=== PATIENT | female | born 1940 | race Caucasian/White ===

== ENCOUNTER 2019-02-18 12:05 | Emergency (ER) | payer MEDICARE ==
[~2019-02-18] VITALS: Ht 160.2 cm; Wt 54.5 kg
--- NOTE | 2019-02-18 12:24 | ED General ---
General Stated Complaint: FALL Source of Information: Patient, Caregiver History of Present Illness Date Seen by Provider: Feb 18, 2019 Time Seen by Provider: 12:15 Initial Comments Fall with injury to left face. Laceration in outline of her glasses. No active bleeding. No other injury or concern. Allergies and Home Medications Patient Home Medication List Home Medication List Reviewed: Yes Review of Systems Review of Systems Constitutional: no symptoms reported; No dizziness, No malaise, No weakness EENTM: see HPI; No ear pain, No blurred vision, No double vision, No eye pain, No vision loss, No mouth pain, No epistaxis, No nose pain, No throat pain, No throat swelling Musculoskeletal: No back pain, No joint pain, No joint swelling, No neck pain Skin: see HPI Past Luggxwa-Sncoxt-Jkjeio Hx Past Med/Social Hx: Reviewed Nursing Past Med/Soc Hx Physical Exam Vital Signs Capillary Refill : Height, Weight, BMI Height: '" Weight: lbs. oz. 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 "scratch") Progress/Results/Core Measures Suspected Sepsis SIRS Temperature: Pulse: Respiratory Rate: Blood Pressure / Mean: Results/Orders Vital Signs/I&O Capillary Refill : Departure Impression Primary Impression: Superficial laceration of face Disposition: HOME, SELF-CARE Condition: Improved Departure-Patient Inst. Referrals: SELF,BJ VALERIO (PCP/Family) Primary Care Physician Patient Instructions: Wound Care CHIO FARMER DO Feb 18, 2019 12:24
[2019-02-18 12:35] VITALS: BP 178/83
--- NOTE | 2019-02-18 12:35 | NUR ---
Pt seen and evaluated by No palpable injury of head/neck/torso/extremities. Denies pain. The left upper cheek area was cleansed with betasept and water then covered in triple antibiotic ointment. The edges of skin tear are well approximated. No active bleeding at area. No c/o offered by patient. Pt is reported to be at normal behavioral level by [facility] staff.
== END 2019-02-18 12:35 | disposition home or self-care (01) ==
LOC: ER FS 12:08
DX: S01.81XA Laceration without foreign body of other part of head, initial encounter (principal); W19.XXXA Unspecified fall, initial encounter

== ENCOUNTER 2019-08-18 18:12 | Emergency (ER) | payer MEDICARE, OTHER ==
[~2019-08-18] VITALS: Ht 160 cm; Wt 61.3 kg
--- OUTSIDE RECORDS SUMMARY | 2019-08-18 18:16 | XMS REPORT ---
Author Author Rach SIMON [facility] Address [address] [place] [address] Care Team Providers Care Nuclear Medical Technologist Name Role Phone BJ SIMON Unavailable PROBLEMS Type Condition ICD9-CM Code [id number] Code Onset Dates Condition S tatus SNOMED Code Problem Chronic kidney disease, stage III (moderate) N18.3 Active 874040277 Problem Type 2 diabetes mellitus with diabetic chronic kidney disease E11.22 Active 110591010 Problem Late onset Alzheimers disease with behavioral disturba nce G30.1 Apr, Active [id number] Problem Type 2 diabetes mellitus wit h hyperglycemia, with long-term current use of insulin E11.65 22 May, 2017 Active [id number] ALLERGIES No Information ENCOUNTERS Encounter Location Date Diagnosis [address] [id number] [address] Jul, [address] [id number] [address] 02 Jul, 2019 UTI symptoms R39.[address] [id number] [address] Jun, [facility] [address] [place] [address] 14 May, 2019 Late onset Alzheimers disease with behavioral disturbance G30.[address] [id number], [place] [address] 12 May, [address] [id number], [place] [address] Apr, [address] [id number] [address] Apr, [address] [id number] [place] [address] Apr, [facility] [address] [address] Mar, Late onset Alzheimers disease with behavioral disturbance G30.1 ; Chronic kidney disease, stage III (moderate) N18.3 and Elevated blood pressure reading R03.0 [facility] [address] [id number] [place] [address] Feb, [facility] [address] [id number], [place] [address] Feb, [facility] [address] [id number], [place] [address] Jan, Fall W19.XXXA [facility] [address] Jan, Late onset Alzheimers disease with behavioral disturbance G30.1 [facility] [address] [id number], [place] [address] Dec, [facility] [address] [id number], [place] [address] Dec, [facility] [address] [address] Nov, Late onset Alzheimers disease with behavioral disturbance G30.1 ; Type 2 diabetes mellitus with hyperglycemia, with long-term current use of insulin E11.65 ; Type 2 diabetes mellitus with diabetic chronic kidney disease E11.22 and Chronic kidney disease, stage III (moderate) N18.3 [facility] [address] [id number] [place] [address] Nov, [facility] [address] [id number] [place] [address] Nov, Acute lower UTI N39.0 [facility] [place] [address] [id number] [place] [address] Nov, Type 2 diabetes mellitus wit h hyperglycemia, with long- term current use of insulin E11.65 [facility] [address] [id number] [place] [address] Oct, Abnormal metabolic state in diabetes mellitus E11.69 and Alzheimer's disease G30.9 [facility] [place] [address] [id number] [place] [address] Oct, [facility] [place] [address] [id number] [place] [address] Oct, [facility] [place] [address] [id number] [place] [address] Sep, Type 2 diabetes mellitus wit h hyperglycemia, with long- term current use of insulin E11.65 and Alzheimer disease G30.9 [facility] [place] [address] [id number] [place] [address] Sep, [facility] [place] [address] [id number] [place] [address] Sep, [facility] [place] [address] [id number] [place] [address] Sep, [facility] [place] [address] [id number] [place] [address] August, [facility] [place] [address] [id number] [place] [address] August, [facility] [place] [address] [id number] [place] [address] August, [facility] [place] [address] [id number] [place] [address] August, [facility] [place] [address] [id number] [place] [address] Jul, [facility] [place] [address] [id number] [place] [address] Jun, Type 2 diabetes mellitus wit h hyperglycemia, with long- term current use of insulin E11.65 [facility] [place] [address] [id number] [place] [address] Jun, [facility] [address] [id number] [place] [address] Jun, Alzheimer disease G30.9 and Abnormal metabolic state in diabetes mellitus E11.[address] [id number] [place] [address] 15 May, [address] [id number] [place] [address] May, [facility] [address] [facility] [id number] [address] [place] [address] Mar, [facility] [address] [facility] [id number] [address] [place] [address] Mar, [facility] [address] [facility] [id number] [address] [place] [address] Apr, [facility] [address] [facility] [id number] [address] [place] [address] Jun, IMMUNIZATIONS No Known Immunizations SOCIAL HISTORY Never Assessed REASON FOR VISIT Chronic PLAN OF CARE Activity Details Follow Up 2 Months Reason: VITAL SIGNS MEDICATIONS Unknown Medications RESULTS No Results PROCEDURES Procedure Date Ordered Result Body Site Stable Visit (10 minutes) July 22, 2018 INSTRUCTIONS MEDICATIONS ADMINISTERED No Known Medications MEDICAL (GENERAL) HISTORY Type Description Date Medical History Type 2 diabetes mellitus wit h hyperglycemia, with long-term current use of insulin Medical History Late onset Alzheimers disease with behav ioral disturbance
--- OUTSIDE RECORDS SUMMARY | 2019-08-18 18:16 | XMS REPORT | Continuity of Care Document ---
Author Organization Unknown Address Unknown Phone Unavailable Allergies Active Description Code Type Severity Reaction Onset Reported/Identified Relationship to Patient Clinical Status Yes azithromycin [id number] Drug Allergy Unknown N/A 02/18/2019 Yes metformin [id number] Drug Allergy Unknown N/A 02/18/2019 Yes NSAIDS (Non-Steroidal Anti-Inflamma [id number] Drug Allergy Unknown N/A 02/18/2019 Medications There is no data. Problems Date Dx Coded Attending Type Code Diagnosis Diagnosed By 02/18/2019 CHIO FARMER DO Ot S01.81XA LACERATION W/O FOREIGN BODY OF OTH PART 02/18/2019 CHIO FARMER DO Ot W19.XXXA UNSPECIFIED FALL, INITIAL ENCOUNTER Procedures There is no data. Results Test Result Range CMP - 07/05/18 11:28 GLUCOSE 123 mg/dL 65-99 UREA NITROGEN (BUN) 33 mg/dL 7-25 CREATININE 1.43 mg/dL 0.60-0.93 eGFR NON-AFR. BOLIVIAN 35 mL/min/1.73m2 > OR = 60 eGFR 41 mL/min/1.73m2 > OR = 60 BUN/CREATININE RATIO 23 (calc) 6-22 SODIUM 140 mmol/L 135-146 POTASSIUM 4.6 mmol/L 3.5-5.3 CHLORIDE 105 mmol/L 98-110 CARBON DIOXIDE 27 mmol/L 20-32 CALCIUM 9.5 mg/dL 8.6-10.4 PROTEIN, TOTAL 6.6 g/dL 6.1-8.1 ALBUMIN 4.0 g/dL 3.6-5.1 GLOBULIN 2.6 g/dL (calc) 1.9-3.7 ALBUMIN/GLOBULIN RATIO 1.5 (calc) 1.0-2. 5 BILIRUBIN, TOTAL 0.3 mg/dL 0.2-1.2 ALKALINE PHOSPHATASE 65 U/L 33-130 AST 16 U/L 10-35 ALT 11 U/L 6-29 CBC w/MANUAL DIFF - 07/05/18 11:28 WHITE BLOOD CELL COUNT 5.4 Thousand/uL 3 .8-10.8 RED BLOOD CELL COUNT 4.09 Million/uL 3.8 0-5.10 HEMOGLOBIN 12.3 g/dL 11.7-15.5 HEMATOCRIT 38.3 % 35.0-45.0 MCV 93.6 fL 80.0-100.0 MCH 30.1 pg 27.0-33.0 MCHC 32.1 g/dL 32.0-36.0 RDW 12.0 % 11.0-15.0 PLATELET COUNT 199 Thousand/uL 140-400 MPV 11.0 fL 7.5-12.5 ABSOLUTE NEUTROPHILS 2322 cells/uL 1500- 7800 ABSOLUTE MONOCYTES 1026 cells/uL 200-950 ABSOLUTE EOSINOPHILS 324 cells/uL 15-500 ABSOLUTE BASOPHILS 108 cells/uL 0-200 NEUTROPHILS 43 % NRG LYMPHOCYTES 30 % NRG MONOCYTES 19 % NRG EOSINOPHILS 6 % NRG BASOPHILS 2 % NRG ABSOLUTE LYMPHOCYTES 1620 cells/uL 850-3 900 PLATELET ESTIMATION ADEQUATE ADEQUATE CBC MORPHOLOGY NORMAL A1C - 07/05/18 11:28 HEMOGLOBIN A1c 7.5 % of total Hgb <5.7 CMP - 11/15/18 08:09 GLUCOSE 94 mg/dL 65-99 UREA NITROGEN (BUN) 40 mg/dL 7-25 CREATININE 1.51 mg/dL 0.60-0.93 eGFR NON-AFR. BOLIVIAN 33 mL/min/1.73m2 > OR = 60 eGFR 39 mL/min/1.73m2 > OR = 60 BUN/CREATININE RATIO 26 (calc) 6-22 SODIUM 145 mmol/L 135-146 POTASSIUM 4.9 mmol/L 3.5-5.3 CHLORIDE 108 mmol/L 98-110 CARBON DIOXIDE 29 mmol/L 20-32 CALCIUM 9.8 mg/dL 8.6-10.4 PROTEIN, TOTAL 7.2 g/dL 6.1-8.1 ALBUMIN 4.3 g/dL 3.6-5.1 GLOBULIN 2.9 g/dL (calc) 1.9-3.7 ALBUMIN/GLOBULIN RATIO 1.5 (calc) 1.0-2. 5 BILIRUBIN, TOTAL 0.4 mg/dL 0.2-1.2 ALKALINE PHOSPHATASE 82 U/L 33-130 AST 16 U/L 10-35 ALT 10 U/L 6-29 A1C - 11/15/18 08:09 HEMOGLOBIN A1c 8.2 % of total Hgb <5.7 CULTURE, URINE - 12/01/18 13:41 CULTURE, URINE, ROUTINE SEE NOTE NRG Encounters ACCT No. Visit Date/Time Discharge Status Pt. Type Provider Facility Loc./Unit Complaint [id number] 06/09/2019 14:00:00 06/09/2019 23:59: 59 CLS Outpatient BJ SIMON [id number] 12/01/2018 13:30:00 Document Registration [id number] 11/15/2018 17:45:00 Document Registration [id number] 07/05/2018 17:45:00 Document Registration [id number] 02/18/2019 12:08:00 12:35:00 DIS Emergency CHIO FARMER DO [facility] ER FS FALL [id number] 08/18/2019 18:13:[address] Emergency CHIO FARMER DO [facility] ER FS
[2019-08-18 18:20] VITALS: BP 199/73
--- NOTE | 2019-08-18 18:24 | Diagnostic Imaging Report ---
INDICATION: Altered mental status. Right-sided weakness. TECHNIQUE: Routine non contrast-enhanced axial images were obtained from the skull base to the vertex. Auto Exposure Controls were utilized during the CT exam to meet ALARA standards for radiation dose reduction COMPARISON: None. FINDINGS: The ventricles and cortical sulci are diffusely prominent, compatible with age-related volume loss. There are confluent areas of abnormal, low attenuation in the periventricular white matter. This is consistent with small vessel ischemic changes; age-indeterminate. There is no prior study available for comparison. There is no midline shift or mass-effect. No acute intra-axial hemorrhage is seen. There are no abnormal areas of increased or decreased density to suggest acute hemorrhage or edema. No extra-axial masses or collections are present. The bony calvarium is intact. The visualized paranasal sinuses are unremarkable. The mastoid air cells are clear. IMPRESSION: 1. No acute intracranial abnormality. No CT evidence of mass, acute infarct or intracranial hemorrhage. 2. Small vessel ischemic changes in the periventricular and subcortical white matter; likely chronic. Dictated by: Dictated on workstation # [id number]
--- NOTE | 2019-08-18 18:31 | ED General ---
General Chief Complaint: Altered Mental Status Exam Limitations: Other (Dementia- unable to answer specific questions, but is without complaint) History of Present Illness Date Seen by Provider: Aug 18, 2019 Time Seen by Provider: 18:20 Initial Comments Presents via EMS from the [place] where she became unresponsive and noted to have BS in 30's, given glucose en route to ER. Required oxygen (not normally on O2). More alert on arrival. Pt w significant dementia at baseline. Allergies and Home Medications Allergies Coded Allergies: NSAIDS (Non-Steroidal Anti-Inflamma (Unverified Allergy, Unknown, 02/18/19) azithromycin (Unverified Allergy, Unknown, 02/18/19) metformin (Unverified Allergy, Unknown, 02/18/19) Patient Home Medication List Home Medication List Reviewed: Yes Review of Systems Review of Systems Constitutional: see HPI Past Tmrzjwm-Ztjglq-Mtkxjm Hx Past Med/Social Hx: Reviewed Nursing Past Med/Soc Hx Patient Social History Recent Hopitalizations: No Immunizations Up To Date Tetanus Booster (TDap): Unknown Seasonal Allergies Seasonal Allergies: No Past Medical History Surgeries: No (Poor historian r/t dementia) Respiratory: No Cardiac: Yes High Cholesterol Neurological: Yes (Advanced Alzheimer's, Diabetic neuropathy) Dementia, Neuropathy Genitourinary: No Gastrointestinal: No Musculoskeletal: No Endocrine: Yes Diabetes, Insulin dep HEENT: No Cancer: No Psychosocial: Yes (Delusional disorder) Anxiety, Depression Integumentary: No Blood Disorders: No Physical Exam Vital Signs Vital Signs - First Documented 08/18/19 18:15 Temp 36.3 Pulse 98 Resp 19 B/P (MAP) 199/73 (115) Pulse Ox 84 O2 Delivery Nasal Cannula O2 Flow Rate 4.00 Capillary Refill : Height, Weight, BMI Height: '" Weight: lbs. oz. 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 Norm as Tested; No Aphasia, No Facial Droop, No Motor Weakness, No Sensory Deficit Skin: Normal Color, Warm/Dry Focused Exam Lactate Level 08/18/19 18:42: Lactic Acid Level 2.29*H Lactic Acid Level Laboratory Tests Test 08/18/19 18:42 Lactic Acid Level 2.29 MMOL/L (0.50-2.00) *H Progress/Results/Core Measures Suspected Sepsis Recent Fever Within 48 Hours: No Infection Criteria Present: None New/Unexplained Altered Menta: Yes SIRS Temperature: Pulse: Respiratory Rate: Laboratory Tests 08/18/19 18:25: White Blood Count 9.3 Blood Pressure / Mean: 08/18/19 18:42: Lactic Acid Level 2.29*H Laboratory Tests 08/18/19 18:25: Creatinine 1.35H, Platelet Count 58L, Total Bilirubin 0.3 Results/Orders Lab Results Laboratory Tests Test 08/18/19 18:25 08/18/19 18:42 08/18/19 19:28 Range/Units White Blood Count 9.3 4.3-11.0 10^3/uL Red Blood Count 3.90 L 4.35-5.85 10^6/uL Hemoglobin 11.6 11.5-16.0 G/DL Hematocrit 37 35-52 % Mean Corpuscular Volume 94 80-99 FL Mean Corpuscular Hemoglobin 30 25-34 PG Mean Corpuscular Hemoglobin Concent 32 32-36 G/DL Red Cell Distribution Width 12.4 10.0-14.5 % Platelet Count 58 L 130-400 10^3/uL Mean Platelet Volume 11.4 H 7.4-10.4 FL Neutrophils (%) (Auto) 77 H 42-75 % Lymphocytes (%) (Auto) 13 12-44 % Monocytes (%) (Auto) 8 0-12 % Eosinophils (%) (Auto) 2 0-10 % Basophils (%) (Auto) 1 0-10 % Neutrophils # (Auto) 7.1 1.8-7.8 X 10^3 Lymphocytes # (Auto) 1.2 1.0-4.0 X 10^3 Monocytes # (Auto) 0.4 0.0-1.0 X 10^3 Eosinophils # (Auto) 0.1 0.0-0.3 10^3/uL Basophils # (Auto) 0.1 0.0-0.1 10^3/uL Sodium Level 137 135-145 MMOL/L Potassium Level 4.6 3.6-5.0 MMOL/L Chloride Level 98 98-107 MMOL/L Carbon Dioxide Level 24 21-32 MMOL/L Anion Gap 15 H 5-14 MMOL/L Blood Urea Nitrogen 32 H 7-18 MG/DL Creatinine 1.35 H 0.60-1.30 MG/DL Estimat Glomerular Filtration Rate 38 BUN/Creatinine Ratio 24 Glucose Level 220 H 70-105 MG/DL Calcium Level 8.9 8.5-10.1 MG/DL Corrected Calcium 8.7 8.5-10.1 MG/DL Total Bilirubin 0.3 0.1-1.0 MG/DL Aspartate Amino Transf (AST/SGOT) 23 5-34 U/L Alanine Aminotransferase (ALT/SGPT) 15 0-55 U/L Alkaline Phosphatase 95 40-136 U/L Total Protein 6.9 6.4-8.2 GM/DL Albumin 4.2 3.2-4.5 GM/DL Lactic Acid Level 2.29 *H 0.50-2.00 MMOL/L Glucometer 250 H 70-110 MG/DL My Orders Orders - ROVENSTINE,CHIO L DO Ct Head Wo-R/O Stroke (08/18/19 18:15) Cbc With Automated Diff (08/18/19 18:14) Comprehensive Metabolic Panel (08/18/19 18:14) Urinalysis (08/18/19 18:14) Chest Pa/Lat (2 View) (08/18/19 18:26) Lactic Acid Analyzer (08/18/19 18:26) Vital Signs/I&O 08/18/19 08/18/19 08/18/19 18:15 18:20 19:20 Temp 36.3 36.3 Pulse 98 98 94 Resp 19 19 18 B/P (MAP) 199/73 (115) 199/73 (115) 177/82 Pulse Ox 84 93 92 O2 Delivery Nasal Cannula Room Air Room Air O2 Flow Rate 4.00 4.00 100.00 Capillary Refill : Progress Note : Progress Note patient well appearing and in no distress. NO neurologic deficit. Return to baseline dementia. Initially Hypoxic, but quickly resolved and Sats >92% on RA at Discharge back to [place]. Normal CXR and CT. Episode confirmed to be due to Hypoglycemia. Diagnostic Imaging Diagonstic Imaging: Xray, CT Plain Films/CT/US/NM/MRI: chest, head Comments IMPRESSION: 1. No acute intracranial abnormality. No CT evidence of mass, acute infarct or intracranial hemorrhage. 2. Small vessel ischemic changes in the periventricular and subcortical white matter; likely chronic. Dictated on workstation # [id number] Dict: 08/18/19 182 Trans: 08/18/19 182 [facility] [id number] Interpreted by: TINO SINGH MD FINDINGS: The cardiac silhouette is within normal limits in size. No significant pulmonary vascular congestion. The lungs are hyperinflated with flattening of the diaphragm and prominence of the anterior clear space. The lungs are clear with focal pulmonary opacity. No pleural effusion. No pneumothorax. No acute osseous abnormality. IMPRESSION: Background chronic obstructive pulmonary disease without superimposed acute cardiopulmonary abnormality. Dictated on workstation # [id number] Dict: 08/18/19 1842 Trans: 08/18/19 185 [facility] [phone] Interpreted by: LISA DELEON MD Departure Impression Primary Impression: Unresponsive episode Additional Impression: Hypoglycemia Disposition: 01 HOME, SELF-CARE (intermediate) Condition: Improved Departure-Patient Inst. Decision time for Depature: 19:14 Referrals: BJ SIMON MD (PCP/Family) Primary Care Physician Patient Instructions: Low Blood Sugar, Adult (DC) CHIO FARMER DO Aug 18, 2019 18:31
[2019-08-18 18:35] LABS: BASOPHILS # (AUTO) 0.1 10^3/uL (0.0-0.1); BASOPHILS % (AUTO) 1 % (0-10); EOSINOPHILS # (AUTO) 0.1 10^3/uL (0.0-0.3); EOSINOPHILS % (AUTO) 2 % (0-10); HEMATOCRIT 37 % (35-52); HEMOGLOBIN 11.6 G/DL (11.5-16.0); LYMPHOCYTES # (AUTO) 1.2 X 10^3 (1.0-4.0); LYMPHOCYTES % (AUTO) 13 % (12-44); MEAN CORPUSCULAR HEMOGLOBIN 30 PG (25-34); MEAN CORPUSCULAR HGB CONC 32 G/DL (32-36); MEAN CORPUSCULAR VOLUME 94 FL (80-99); MEAN PLATELET VOLUME 11.4 FL (7.4-10.4); MONOCYTES # (AUTO) 0.4 X 10^3 (0.0-1.0); MONOCYTES % (AUTO) 8 % (0-12); NEUTROPHILS # (AUTO) 7.1 X 10^3 (1.8-7.8); NEUTROPHILS % (AUTO) 77 % (42-75); PLATELET COUNT 58 10^3/uL (130-400); RED CELL DISTRIBUTION WIDTH 12.4 % (10.0-14.5); WHITE BLOOD COUNT 9.3 10^3/uL (4.3-11.0)
--- NOTE | 2019-08-18 18:53 | Diagnostic Imaging Report ---
INDICATION: Altered mental status, wheezing. COMPARISON: None available. TECHNIQUE: Frontal and lateral radiographs of the chest dated August 18, 2019. FINDINGS: The cardiac silhouette is within normal limits in size. No significant pulmonary vascular congestion. The lungs are hyperinflated with flattening of the diaphragm and prominence of the anterior clear space. The lungs are clear with focal pulmonary opacity. No pleural effusion. No pneumothorax. No acute osseous abnormality. IMPRESSION: Background chronic obstructive pulmonary disease without superimposed acute cardiopulmonary abnormality. Dictated by: Dictated on workstation # [id number]
[2019-08-18 18:56] LABS: ALBUMIN 4.2 GM/DL (3.2-4.5); BILIRUBIN,TOTAL 0.3 MG/DL (0.1-1.0); CALCIUM 8.9 MG/DL (8.5-10.1); CREATININE SERUM 1.35 MG/DL (0.60-1.30); POTASSIUM 4.6 MMOL/L (3.6-5.0); TOTAL PROTEIN 6.9 GM/DL (6.4-8.2)
[2019-08-18 19:20] VITALS: BP 177/82
== END 2019-08-18 19:47 | disposition home or self-care (01) ==
LOC: EDUNIT# 18:12 → ER FS 18:13
DX: E11.641 Type 2 diabetes mellitus with hypoglycemia with coma (principal); E11.40 Type 2 diabetes mellitus with diabetic neuropathy, unspecified; Z88.6 Allergy status to analgesic agent; Z88.1 Allergy status to other antibiotic agents; Z88.8 Allergy status to other drugs, medicaments and biological substances
CPT/HCPCS: 36415; 70450; 71046; 80053; 82962; 83605; 85025

== ENCOUNTER 2019-08-31 15:26 | Emergency (ER) | payer MEDICARE, MEDICAID ==
[2019-08-31] VITALS (7 sets, daily range): BP systolic 147–175; BP diastolic 59–72
[~2019-08-31] VITALS: Ht 167.7 cm; Wt 68.2 kg
--- NOTE | 2019-08-31 15:37 | ED General ---
General Stated Complaint: SINKABLE EPISODE History of Present Illness Date Seen by Provider: August 31, 2019 Time Seen by Provider: 15:36 Initial Comments 79-year-old female presents with a brief syncopal episode. Patient was at [facility] where she [facility]. EMS reports that they were called because she had a brief less than 2 minute episode when she had a syncopal event. Upon arrival EMS reports she was alert orientated in her baseline. Patient is at her baseline upon arrival. Upon arrival she has no complaints. C guillory review shows that she had a similar episode 2 weeks ago. Patient is alert and orientated to person place time and wishes no other event happened. Patient has no injuries. No other history of present illness available Allergies and Home Medications Allergies Coded Allergies: NSAIDS (Non-Steroidal Anti-Inflamma (Unverified Allergy, Unknown, 02/18/19) azithromycin (Unverified Allergy, Unknown, 02/18/19) metformin (Unverified Allergy, Unknown, 02/18/19) Patient Home Medication List Home Medication List Reviewed: Yes Review of Systems Review of Systems Constitutional: No chills, No fever EENTM: no symptoms reported Respiratory: no symptoms reported Cardiovascular: no symptoms reported Gastrointestinal: no symptoms reported Genitourinary: no symptoms reported Musculoskeletal: no symptoms reported Psychiatric/Neurological: See HPI Hematologic/Lymphatic: No Symptoms Reported Past Jsvqoye-Sktxso-Pbqtcj Hx Past Med/Social Hx: Reviewed Nursing Past Med/Soc Hx Patient Social History 2nd Hand Smoke Exposure: No Recent Hopitalizations: No Immunizations Up To Date Tetanus Booster (TDap): Unknown Seasonal Allergies Seasonal Allergies: No Past Medical History Surgeries: No (Poor historian r/t dementia) Respiratory: No Cardiac: Yes High Cholesterol Neurological: Yes (Advanced Alzheimer's, Diabetic neuropathy) Dementia, Neuropathy Genitourinary: No Gastrointestinal: Yes Chronic Constipation Musculoskeletal: No Endocrine: Yes Diabetes, Insulin dep HEENT: No Cancer: No Psychosocial: Yes (Delusional disorder) Anxiety, Depression Integumentary: No Blood Disorders: No Physical Exam Vital Signs Vital Signs - First Documented 08/31/19 15:56 Temp 36.6 Pulse 76 Resp 13 B/P (MAP) 188/68 (108) Pulse Ox 96 O2 Delivery Room Air Capillary Refill : Height, Weight, BMI Height: '" Weight: lbs. oz. kg; 23.00 BMI Method: General Appearance: No Apparent Distress, WD/WN Eyes: Bilateral Eye Normal Inspection, Bilateral Eye PERRL HEENT: PERRL/EOMI, Normal ENT Inspection, Pharynx Normal Neck: Non Tender, Supple Respiratory: Chest Non Tender, Lungs Clear, Normal Breath Sounds Cardiovascular: Regular Rate, Rhythm, No Edema Gastrointestinal: Non Tender, Soft Extremity: Normal Capillary Refill, Normal Inspection Neurologic/Psychiatric: Alert, Oriented x3, No Motor/Sensory Deficits, Normal Mood/Affect, traffic manager II-XII Norm as Tested Skin: Normal Color, Warm/Dry Progress/Results/Core Measures Suspected Sepsis SIRS Temperature: Pulse: Respiratory Rate: Laboratory Tests 08/31/19 15:40: White Blood Count 9.5 Blood Pressure / Mean: Laboratory Tests 08/31/19 15:40: Creatinine 1.60H, Platelet Count 301, Total Bilirubin < 0.2 Results/Orders Lab Results Laboratory Tests Test 08/31/19 15:40 Range/Units White Blood Count 9.5 4.3-11.0 10^3/uL Red Blood Count 3.79 L 4.35-5.85 10^6/uL Hemoglobin 11.5 11.5-16.0 G/DL Hematocrit 36 35-52 % Mean Corpuscular Volume 95 80-99 FL Mean Corpuscular Hemoglobin 30 25-34 PG Mean Corpuscular Hemoglobin Concent 32 32-36 G/DL Red Cell Distribution Width 12.7 10.0-14.5 % Platelet Count 301 130-400 10^3/uL Mean Platelet Volume 10.4 7.4-10.4 FL Neutrophils (%) (Auto) 53 42-75 % Lymphocytes (%) (Auto) 30 12-44 % Monocytes (%) (Auto) 13 H 0-12 % Eosinophils (%) (Auto) 3 0-10 % Basophils (%) (Auto) 1 0-10 % Neutrophils # (Auto) 5.0 1.8-7.8 X 10^3 Lymphocytes # (Auto) 2.9 1.0-4.0 X 10^3 Monocytes # (Auto) 1.2 H 0.0-1.0 X 10^3 Eosinophils # (Auto) 0.3 0.0-0.3 10^3/uL Basophils # (Auto) 0.1 0.0-0.1 10^3/uL Sodium Level 142 135-145 MMOL/L Potassium Level 5.0 3.6-5.0 MMOL/L Chloride Level 102 98-107 MMOL/L Carbon Dioxide Level 26 21-32 MMOL/L Anion Gap 14 5-14 MMOL/L Blood Urea Nitrogen 46 H 7-18 MG/DL Creatinine 1.60 H 0.60-1.30 MG/DL Estimat Glomerular Filtration Rate 31 BUN/Creatinine Ratio 29 Glucose Level 185 H 70-105 MG/DL Calcium Level 9.4 8.5-10.1 MG/DL Corrected Calcium 9.3 8.5-10.1 MG/DL Total Bilirubin < 0.2 0.1-1.0 MG/DL Aspartate Amino Transf (AST/SGOT) 19 5-34 U/L Alanine Aminotransferase (ALT/SGPT) 12 0-55 U/L Alkaline Phosphatase 94 40-136 U/L Troponin I < 0.30 <0.30 NG/ML Total Protein 7.3 6.4-8.2 GM/DL Albumin 4.1 3.2-4.5 GM/DL My Orders Orders - ALVARADO,FIDEL L DO Ct Head Wo-R/O Stroke (08/31/19 15:47) Cbc With Automated Diff (08/31/19 15:47) Comprehensive Metabolic Panel (08/31/19 15:47) Ua Culture If Indicated (08/31/19 15:47) Accucheck Stat ONCE (08/31/19 15:47) Troponin I Fs (08/31/19 15:47) Ekg Tracing (08/31/19 15:47) Chest 1 View Ap/Pa Only (08/31/19 15:48) Ed Iv/Invasive Line Start (08/31/19 16:31) Ns Iv 500 Ml (Sodium Chloride 0.9%) (08/31/19 16:31) Medications Given in ED Current Medications Medications Dose Ordered Sig/Yadira Route Start Time Stop Time Status Last Admin Dose Admin Sodium Chloride 500 ml @ 0 mls/hr Q0M ONCE IV 08/31/19 16:31 08/31/19 16:32 DC 08/31/19 17:03 999 MLS/HR Vital Signs/I&O 08/31/19 15:56 Temp 36.6 Pulse 76 Resp 13 B/P (MAP) 188/68 (108) Pulse Ox 96 O2 Delivery Room Air Capillary Refill : Progress Note : Time: 17:23 Progress Note Patient remained alert orientated with no acute findings on her stay. We will have the [facility] obtain a urine and have it evaluated by her primary care provider. Patient had some mild dehydration likely chronic. She will be discharged back to the [facility] in stable condition. Diagnostic Imaging Comments [facility] [place] NAME: ZECHARIAH CHAMBERLAIN [facility] REC#: [id number] PT STATUS: REG ER : 1940 PHYSICIAN: FIDEL ALVARADO DO ADMIT DATE: 08/31/19/ER FS Draft Date of Exam:08/31/19 CT HEAD WO-R/O STROKE CLINICAL INDICATION: Patient with dizziness and syncope. EXAM: Axial CT scan of the brain performed without IV contrast. COMPARISON: Head CT without contrast dated 08/18/2019. FINDINGS: Skull streak artifact is seen obscuring the brainstem, posterior fossa, and portions of the brain near the skull base. There is no interval CT evidence of acute cerebral infarct, intracranial hemorrhage, or gross mass effect. Stable diffuse brain parenchymal volume loss with the frontal lobes and temporal lobes affected the most. There are patchy areas of low-attenuation white matter changes seen throughout both cerebral hemispheres, likely representing chronic small vessel ischemic disease. Stable enlargement of the lateral third ventricles, likely related to brain parenchymal volume loss. Basal cisterns are unremarkable. Extracranial soft tissues, skull, and orbits are unremarkable. Paranasal sinuses and mastoid air cells are clear. IMPRESSION: Stable CT scan of the brain with no interval acute intracranial process. [facility] [place] NAME: ZECHARIAH CHAMBERLAIN [facility] REC#: [id number] PT STATUS: REG ER : 1940 PHYSICIAN: FIDEL ALVARADO DO ADMIT DATE: 08/31/19/ER FS Draft Date of Exam:08/31/19 CHEST 1 VIEW AP/PA ONLY INDICATION: Syncope. Dizziness. COMPARISON: 08/18/2019. FINDINGS: Single frontal view of the chest demonstrates normal heart size and pulmonary vascularity. The lungs are well aerated and clear. No large pleural effusion or pneumothorax is seen. The visualized osseous structures show no acute abnormalities. IMPRESSION: 1. No acute cardiopulmonary process. Departure Impression Primary Impression: Syncope Qualified Codes: R55 - Syncope and collapse Additional Impression: Mild dehydration Disposition: 01 HOME, SELF-CARE Condition: Stable Departure-Patient Inst. Referrals: BJ SIMON MD (PCP/Family) Primary Care Physician Patient Instructions: Syncope (Fainting) (DC), Dehydration, Adult (DC) Add. Discharge Instructions: Please have patient urine checked by her primary care provider if there is a concern for urinary tract infection. Follow-up with primary care provider in 2-3 days for continuation of care and recheck in today symptoms Emergency department focuses on treating and ruling out life-threatening diseases. Whenever possible, a diagnosis is given. However, most patients are given an impression based on their history, physical exam, and workup during your brief time in the ER. Information about probable diagnosis and other educational material has been provided. Please take the time to read and understand this information. It is very important that you follow up with a physician as discussed during the visit today. Failure to adhere to your follow-up instructions may lead to severe disability, injury, or so please make sure to keep your appointments or obtain one as requested. Please keep in mind the emergency department is not designed to your primary care or "family doctor" and nonurgent issues are best evaluated by an outpatient physician FIDEL ALVARADO DO August 31, 2019 15:37
--- NOTE | 2019-08-31 16:00 | NUR ---
Report from Sherri PADRON, pt is in CT currently.
[2019-08-31 16:09] LABS: BASOPHILS % (AUTO) 1 % (0-10); EOSINOPHILS % (AUTO) 3 % (0-10); HEMATOCRIT 36 % (35-52); HEMOGLOBIN 11.5 G/DL (11.5-16.0); LYMPHOCYTES % (AUTO) 30 % (12-44); MEAN CORPUSCULAR HEMOGLOBIN 30 PG (25-34); MEAN CORPUSCULAR HGB CONC 32 G/DL (32-36); MEAN CORPUSCULAR VOLUME 95 FL (80-99); MEAN PLATELET VOLUME 10.4 FL (7.4-10.4); MONOCYTES % (AUTO) 13 % (0-12); NEUTROPHILS % (AUTO) 53 % (42-75); PLATELET COUNT 301 10^3/uL (130-400); RED CELL DISTRIBUTION WIDTH 12.7 % (10.0-14.5); WHITE BLOOD COUNT 9.5 10^3/uL (4.3-11.0)
[2019-08-31 16:10] LABS: BASOPHILS # (AUTO) 0.1 10^3/uL (0.0-0.1); EOSINOPHILS # (AUTO) 0.3 10^3/uL (0.0-0.3); LYMPHOCYTES # (AUTO) 2.9 X 10^3 (1.0-4.0); MONOCYTES # (AUTO) 1.2 X 10^3 (0.0-1.0)
--- NOTE | 2019-08-31 16:11 | Diagnostic Imaging Report ---
CLINICAL INDICATION: Patient with dizziness and syncope. EXAM: Axial CT scan of the brain performed without IV contrast. COMPARISON: Head CT without contrast dated 08/18/2019. FINDINGS: Skull streak artifact is seen obscuring the brainstem, posterior fossa, and portions of the brain near the skull base. There is no interval CT evidence of acute cerebral infarct, intracranial hemorrhage, or gross mass effect. Stable diffuse brain parenchymal volume loss with the frontal lobes and temporal lobes affected the most. There are patchy areas of low-attenuation white matter changes seen throughout both cerebral hemispheres, likely representing chronic small vessel ischemic disease. Stable enlargement of the lateral third ventricles, likely related to brain parenchymal volume loss. Basal cisterns are unremarkable. Extracranial soft tissues, skull, and orbits are unremarkable. Paranasal sinuses and mastoid air cells are clear. IMPRESSION: Stable CT scan of the brain with no interval acute intracranial process. Dictated by: Dictated on workstation # [id number]
--- NOTE | 2019-08-31 16:13 | Diagnostic Imaging Report ---
INDICATION: Syncope. Dizziness. COMPARISON: 08/18/2019. FINDINGS: Single frontal view of the chest demonstrates normal heart size and pulmonary vascularity. The lungs are well aerated and clear. No large pleural effusion or pneumothorax is seen. The visualized osseous structures show no acute abnormalities. IMPRESSION: 1. No acute cardiopulmonary process. Dictated by: Dictated on workstation # [id number]
--- NOTE | 2019-08-31 16:20 | NUR ---
Attempt to straight cath for urine and unsuccessful based on anatomy visible but catheter will not pass. Pt was incont of urine and stool in depends prior to procedure and dennise care given.
[2019-08-31 16:24] LABS: ALKALINE PHOSPHATASE 94 U/L (40-136); BILIRUBIN,TOTAL < 0.2 MG/DL (0.1-1.0); BUN/CREATININE RATIO 29; CALCIUM 9.4 MG/DL (8.5-10.1); CARBON DIOXIDE 26 MMOL/L (21-32); CHLORIDE 102 MMOL/L (98-107); GFR ESTIMATED 31; GLUCOSE 185 MG/DL (70-105); SODIUM 142 MMOL/L (135-145)
[2019-08-31 16:25] LABS: ALANINE AMINOTRANSFERASE 12 U/L (0-55); ALBUMIN 4.1 GM/DL (3.2-4.5); TOTAL PROTEIN 7.3 GM/DL (6.4-8.2)
--- NOTE | 2019-08-31 16:30 | NUR ---
Pt was placed on BSC with staff mine warfare officer remaining. Pt sat and was unable to urinate for staff. Returned to bed.
[2019-08-31] MEDS ORDERED: NS IV 500 ML 500 ML IV ONE (16:31)
--- NOTE | 2019-08-31 17:00 | NUR ---
notified unable to get urine from patient via BSC and inability to straight cath. Pt calls out frequently requesting her . Pt lives [place] and believe her spouse lives at her former residence.
--- NOTE | 2019-08-31 17:30 | NUR ---
Pt's IV fluids are completed and IV's x [address] request. Plan DC.
--- NOTE | 2019-08-31 17:40 | NUR ---
Call to [facility] for transportation.
--- NOTE | 2019-08-31 17:45 | NUR ---
Pt was dressed by 2 RN's and new adult diaper placed on pt. Pt placed in WC at nurses desk.
--- NOTE | 2019-08-31 18:00 | NUR ---
Call to [facility] again and was informed the driver engineer coming in technical solution architect back and should be less than 10 more min.
--- NOTE | 2019-08-31 18:05 | NUR ---
Pt assisted into bathroom to void alittle that missed the specimen hat on the toilet.
--- OUTSIDE RECORDS SUMMARY | 2019-08-31 18:07 | XMS REPORT | Continuity of Care Document ---
Author Organization Unknown Address Unknown Phone Unavailable Allergies Active Description Code Type Severity Reaction Onset Reported/Identified Relationship to Patient Clinical Status Yes azithromycin [id number] Drug Allergy Unknown N/A 02/18/2019 Yes metformin [id number] Drug Allergy Unknown N/A 02/18/2019 Yes NSAIDS (Non-Steroidal Anti-Inflamma [id number] Drug Allergy Unknown N/A 02/18/2019 Medications There is no data. Problems Date Dx Coded Attending Type Code Diagnosis Diagnosed By 02/18/2019 CHIO FARMER DO, Ot S01.81XA LACERATION W/O FOREIGN BODY OF OTH PART 02/18/2019 HIROSTCHIO DOAN DO, Ot W19.XXXA UNSPECIFIED FALL, INITIAL ENCOUNTER 08/18/2019 ROVENSTINE DOCHIO Ot E11.40 TYPE 2 DIABETES MELLITUS WITH DIABETIC N 08/18/2019 ROVENSTINE DO, CHIO Prince Ot E11.641 TYPE 2 DIABETES MELLITUS WITH HYPOGLYCEM 08/18/2019 ROVENSTINE CHIO KAPLAN Ot R40.20 UNSPECIFIED COMA 08/18/2019 ROVENSTINE DOCHIO Ot Z88.1 ALLERGY STATUS TO OTHER ANTIBIOTIC AGENT 08/18/2019 ROVENSTINE CHIO KAPLAN Ot Z88.6 ALLERGY STATUS TO ANALGESIC AGENT STATUS 08/18/2019 ROVENSTINE DOCHIO Ot Z88.8 ALLERGY STATUS TO OTH DRUG/MEDS/BIOL SUB 08/21/2019 ROVENSTINE DOCHIO Ot E11.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 Results Test Result Range CMP - 07/05/18 11:28 GLUCOSE 123 mg/dL 65-99 UREA NITROGEN (BUN) 33 mg/dL 7-25 CREATININE 1.43 mg/dL 0.60-0.93 eGFR NON-AFR. [place] 35 mL/min/1.73m2 > OR = 60 eGFR [...] 7-25 CREATININE 1.51 mg/dL 0.60-0.93 eGFR NON-AFR. [place] 33 mL/min/1.73m2 > OR = 60 eGFR [...] 13:41 CULTURE, URINE, ROUTINE SEE NOTE NRG Complete blood count (CBC) with automate d white blood cell (WBC) differential - 08/18/19 18:25 Blood leukocytes automated count (number/volume) 9.3 10*3/uL 4.3-11.0 Blood erythrocytes automated count (number/volume) 3.90 10*6/uL 4.35-5.85 Venous blood hemoglobin measurement (mass/volume) 11.6 g/dL 11.5-16.0 Blood hematocrit (volume fraction) 37 % 35-52 Automated erythrocyte mean corpuscular volume 94 [ foz_us] 80-99 Automated erythrocyte mean corpuscular h emoglobin (mass per erythrocyte) 30 pg 25-34 Automated erythrocyte mean corpuscular h emoglobin concentration measurement (mass/volume) 32 g/dL 32-36 Automated erythrocyte distribution width ratio 12. 4 % 10.0- 14.5 Automated blood platelet count (count/volume) 58 1 0*3/uL 130-400 Automated blood platelet mean volume measurement 11.4 [foz_us] 7.4-10.4 Automated blood neutrophils/100 leukocytes 77 % 42-75 Automated blood lymphocytes/100 leukocytes 13 % 12-44 Blood monocytes/100 leukocytes 8 % 0-12 Automated blood eosinophils/100 leukocytes 2 % 0-10 Automated blood basophils/100 leukocytes 1 % 0-10 Blood neutrophils automated count (number/volume) 7.1 10*3 1.8-7.8 Blood lymphocytes automated count (number/volume) 1.2 10*3 1.0-4.0 Blood monocytes automated count (number/volume) 0. 4 10*3 0.0-1.0 Automated eosinophil count 0.1 10*3/uL 0 .0-0.3 Automated blood basophil count (count/volume) 0.1 10*3/uL 0.0-0.1 Comprehensive metabolic panel - 08/18/19 18:25 Serum or plasma sodium measurement (moles/volume) 137 mmol/L 135-145 Serum or plasma potassium measurement (moles/volume) 4.6 mmol/L 3.6-5.0 Serum or plasma chloride measurement (moles/volume) 98 mmol/L 98-107 Carbon dioxide 24 mmol/L 21-32 Serum or plasma anion gap determination (moles/volume) 15 mmol/L 5-14 Serum or plasma urea nitrogen measurement (mass/volume ) 32 mg/dL 7-18 Serum or plasma creatinine measurement (mass/volume) 1.35 mg/dL 0.60-1.30 Serum or plasma urea nitrogen/creatinine mass ratio 24 NRG Serum or plasma creatinine measurement w ith calculation of estimated glomerular filtration rate 38 NRG Serum or plasma glucose measurement (mass/volume) 220 mg/dL 70-105 Serum or plasma calcium measurement (mass/volume) 8.9 mg/dL 8.5-10.1 Serum or plasma total bilirubin measurement (mass/volu me) 0.3 mg/dL 0.1-1.0 Serum or plasma alkaline phosphatase mildred surement (enzymatic activity/volume) 95 U/L 40-136 Serum or plasma aspartate aminotransfera se measurement (enzymatic activity/volume) 23 U/L 5-34 Serum or plasma alanine aminotransferase measurement (enzymatic activity/volume) 15 U/L 0-55 Serum or plasma protein measurement (mass/volume) 6.9 g/dL 6.4-8.2 Serum or plasma albumin measurement (mass/volume) 4.2 g/dL 3.2-4.5 CALCIUM CORRECTED 8.7 mg/dL 8.5-10.1 Blood lactic acid measurement (moles/vol ume) - 08/18/19 18:42 Blood lactic acid measurement (moles/volume) 2.29 mmol/L 0.50-2.00 Capillary blood glucose measurement by g lucometer (mass/volume) - 08/18/19 19:28 Capillary blood glucose measurement by glucometer (mas s/volume) 250 mg/dL 70-110 Complete blood count (CBC) with automate d white blood cell (WBC) differential - 08/31/19 15:40 Blood leukocytes automated count (number/volume) 9.5 10*3/uL 4.3-11.0 Blood erythrocytes automated count (number/volume) 3.79 10*6/uL 4.35-5.85 Venous blood hemoglobin measurement (mass/volume) 11.5 g/dL 11.5-16.0 Blood hematocrit (volume fraction) 36 % 35-52 Automated erythrocyte mean corpuscular volume 95 [ foz_us] 80-99 Automated erythrocyte mean corpuscular h emoglobin (mass per erythrocyte) 30 pg 25-34 Automated erythrocyte mean corpuscular h emoglobin concentration measurement (mass/volume) 32 g/dL 32-36 Automated erythrocyte distribution width ratio 12. 7 % 10.0- 14.5 Automated blood platelet count (count/volume) 301 10*3/uL 130-400 Automated blood platelet mean volume measurement 10.4 [foz_us] 7.4-10.4 Automated blood neutrophils/100 leukocytes 53 % 42-75 Automated blood lymphocytes/100 leukocytes 30 % 12-44 Blood monocytes/100 leukocytes 13 % 0-12 Automated blood eosinophils/100 leukocytes 3 % 0-10 Automated blood basophils/100 leukocytes 1 % 0-10 Blood neutrophils automated count (number/volume) 5.0 10*3 1.8-7.8 Blood lymphocytes automated count (number/volume) 2.9 10*3 1.0-4.0 Blood monocytes automated count (number/volume) 1. 2 10*3 0.0-1.0 Automated eosinophil count 0.3 10*3/uL 0 .0-0.3 Automated blood basophil count (count/volume) 0.1 10*3/uL 0.0-0.1 Comprehensive metabolic panel - 08/31/19 15:40 Serum or plasma sodium measurement (moles/volume) 142 mmol/L 135-145 Serum or plasma potassium measurement (moles/volume) 5.0 mmol/L 3.6-5.0 Serum or plasma chloride measurement (moles/volume) 102 mmol/L 98-107 Carbon dioxide 26 mmol/L 21-32 Serum or plasma anion gap determination (moles/volume) 14 mmol/L 5-14 Serum or plasma urea nitrogen measurement (mass/volume ) 46 mg/dL 7-18 Serum or plasma creatinine measurement (mass/volume) 1.60 mg/dL 0.60-1.30 Serum or plasma urea nitrogen/creatinine mass ratio 29 NRG Serum or plasma creatinine measurement w ith calculation of estimated glomerular filtration rate 31 NRG Serum or plasma glucose measurement (mass/volume) 185 mg/dL 70-105 Serum or plasma calcium measurement (mass/volume) 9.4 mg/dL 8.5-10.1 Serum or plasma total bilirubin measurement (mass/volu me) < mg/dL 0.1-1.0 Serum or plasma alkaline phosphatase mildred surement (enzymatic activity/volume) 94 U/L 40-136 Serum or plasma aspartate aminotransfera se measurement (enzymatic activity/volume) 19 U/L 5-34 Serum or plasma alanine aminotransferase measurement (enzymatic activity/volume) 12 U/L 0-55 Serum or plasma protein measurement (mass/volume) 7.3 g/dL 6.4-8.2 Serum or plasma albumin measurement (mass/volume) 4.1 g/dL 3.2-4.5 CALCIUM CORRECTED 9.3 mg/dL 8.5-10.1 TROPONIN I FS - 08/31/19 15:40 TROPONIN I FS < 0.30 <0.30 Encounters ACCT No. Visit Date/Time Discharge Status Pt. Type Provider Facility Loc./Unit Complaint [id number] 06/09/2019 14:00:00 06/09/2019 23:59: 59 CLS [facility] [place] Clari Johnson [id number] 12/01/2018 13:30:00 Document Registration [id number] 11/15/2018 17:45:00 Document Registration [id number] 07/05/2018 17:45:00 Document Registration [id number] 08/18/2019 18:13:00 020 19:47:00 DIS Emergency ROVENSTINE DOCHIO [facility] ER FS ALTERED MENTAL STATUS [id number] 02/18/2019 12:08:00 019 12:35:00 DIS Emergency ROVENSTINE CHIO KAPLAN [facility] ER FS FALL [id number] 08/31/2019 16:10:00 Document Registration
--- NOTE | 2019-08-31 18:20 | NUR ---
[employer] transportation van is here to pick up driver patient. The patient was placed in a WC earlier and RN took pt to get into their van. Pt's discharge packet sent with tower truck driver.
== END 2019-08-31 18:20 | disposition home or self-care (01) ==
LOC: EDUNIT# 15:26 → ER FS 15:27
DX: R55 Syncope and collapse (principal); E86.0 Dehydration; E11.40 Type 2 diabetes mellitus with diabetic neuropathy, unspecified; Z88.6 Allergy status to analgesic agent; Z88.1 Allergy status to other antibiotic agents; Z88.8 Allergy status to other drugs, medicaments and biological substances
CPT/HCPCS: 36415; 70450; 71045; 80053; 84484; 85025; 93005

== ENCOUNTER 2019-11-10 14:19 | Emergency (ER) | payer MEDICARE, MEDICAID ==
[~2019-11-10] VITALS: Ht 160 cm; Wt 62.5 kg
[2019-11-10 14:20] VITALS: BP 144/74
--- NOTE | 2019-11-10 14:48 | ED Neurological Problem ---
General Chief Complaint: Neuro-Stroke Like Symptoms Stated Complaint: STROKE SYMPTOMS Source: EMS Exam Limitations: other (dementia) History of Present Illness Date Seen by Provider: Nov 10, 2019 Time Seen by Provider: 14:25 Initial Comments Comes from NH w R sided weakness and difficulty w speech......onset? [facility] staff states she wasn't acting like herself this morning @ 0800, then at lunch she couldn't feed herself. Called EMS after 2pm for possible CVA Last known well? Last evening (most likely) Allergies and Home Medications Allergies Coded Allergies: NSAIDS (Non-Steroidal Anti-Inflamma (Unverified Allergy, Unknown, 02/18/19) azithromycin (Unverified Allergy, Unknown, 02/18/19) metformin (Unverified Allergy, Unknown, 02/18/19) Patient Home Medication List Home Medication List Reviewed: Yes Review of Systems Review of Systems Constitutional: No fever; malaise, weakness Eyes: No Symptoms Reported Ears, Nose, Mouth, Throat: no symptoms reported Respiratory: No cough, No short of breath Cardiovascular: No chest pain, No edema, No palpitations Gastrointestinal: No abdominal pain, No diarrhea, No loss of appetite, No vomiting Genitourinary: no symptoms reported Musculoskeletal: no symptoms reported Psychiatric/Neurological: Denies Unable to Move Lower Ext, Denies Unable to Move Upper Ext; Weakness Past Aqzrxfc-Gqayjj-Geldzf Hx Past Med/Social Hx: Reviewed Nursing Past Med/Soc Hx Patient Social History 2nd Hand Smoke Exposure: No Recent Hopitalizations: No Immunizations Up To Date Tetanus Booster (TDap): Unknown Seasonal Allergies Seasonal Allergies: No Past Medical History Surgeries: No (Poor historian r/t dementia) Respiratory: No Cardiac: Yes High Cholesterol Neurological: Yes (Advanced Alzheimer's, Diabetic neuropathy) Dementia, Neuropathy Genitourinary: No Gastrointestinal: Yes Chronic Constipation Musculoskeletal: No Endocrine: Yes Diabetes, Insulin dep HEENT: No Cancer: No Psychosocial: Yes (Delusional disorder) Anxiety, Depression Integumentary: No Blood Disorders: No Physical Exam Vital Signs Vital Signs - First Documented 11/10/19 14:20 Pulse 80 Resp 16 B/P (MAP) 144/74 Pulse Ox 97 O2 Delivery Room Air Capillary Refill : Height, Weight, BMI Height: '" Weight: lbs. oz. kg; 24.00 BMI Method: General Appearance: WD/WN, no apparent distress HEENT: PERRL/EOMI, normal ENT inspection Neck: non-tender, supple Respiratory: chest non-tender, lungs clear Cardiovascular: regular rate, rhythm, no edema Gastrointestinal: non tender, soft; No distended, No guarding, No rebound, No t enderness Back: normal inspection, no CVA tenderness, no vertebral tenderness Extremities: non-tender, normal inspection, no pedal edema, no calf tenderness, normal capillary refill Neurologic/Psychiatric: alert, normal mood/affect, facial droop (Right) Crainal Nerves: abnormal speech (slurred), facial droop Coordination/Gait: ABN nose to finger (R) Motor/Sensory: no sensory deficit Skin: normal color, warm/dry Stroke NIH Stroke Scale Assessment Select: Post CT Level of Consciousness: 0=Alert (0), Level of Consciousness- Questions: 2=Answer neither question (2), LOC Commands: 0=Performs both tasks (0), Gaze: Normal (0), Visual Bee: 0=No visual loss (0), Facial Movement (Facial Paresis): 1=Minor paralysis R facial droop (1), Motor Function-Arms Right: 0=No drift (0), Motor Function-Arms Left: 0=No drift (0), Motor Function-Legs Right: 0=No drift (0), Motor Function-Legs Left: 0=No drift (0), Limb Ataxia: 1=Present in one limb right arm (1), Sensory: 0=Normal:no loss (0), Best Language: 0=No aphasia (0), Dysarthria: 0=Normal (0), Extinction & Inattention: 0=No abnormality (0), Total: 4 Progress/Results/Core Measures Results/Orders Lab Results Laboratory Tests Test 11/10/19 14:32 11/10/19 14:47 11/10/19 15:26 Range/Units White Blood Count 8.8 4.3-11.0 10^3/uL Red Blood Count 3.98 L 4.35-5.85 10^6/uL Hemoglobin 11.8 11.5-16.0 G/DL Hematocrit 37 35-52 % Mean Corpuscular Volume 94 80-99 FL Mean Corpuscular Hemoglobin 30 25-34 PG Mean Corpuscular Hemoglobin Concent 32 32-36 G/DL Red Cell Distribution Width 12.4 10.0-14.5 % Platelet Count 224 130-400 10^3/uL Mean Platelet Volume 10.2 7.4-10.4 FL Neutrophils (%) (Auto) 63 42-75 % Lymphocytes (%) (Auto) 24 12-44 % Monocytes (%) (Auto) 10 0-12 % Eosinophils (%) (Auto) 2 0-10 % Basophils (%) (Auto) 1 0-10 % Neutrophils # (Auto) 5.6 1.8-7.8 X 10^3 Lymphocytes # (Auto) 2.1 1.0-4.0 X 10^3 Monocytes # (Auto) 0.9 0.0-1.0 X 10^3 Eosinophils # (Auto) 0.2 0.0-0.3 10^3/uL Basophils # (Auto) 0.0 0.0-0.1 10^3/uL Sodium Level 140 135-145 MMOL/L Potassium Level 4.8 3.6-5.0 MMOL/L Chloride Level 102 98-107 MMOL/L Carbon Dioxide Level 25 21-32 MMOL/L Anion Gap 13 5-14 MMOL/L Blood Urea Nitrogen 53 H 7-18 MG/DL Creatinine 1.59 H 0.60-1.30 MG/DL Estimat Glomerular Filtration Rate 31 BUN/Creatinine Ratio 33 Glucose Level 266 H 70-105 MG/DL Calcium Level 9.3 8.5-10.1 MG/DL Corrected Calcium 9.3 8.5-10.1 MG/DL Total Bilirubin 0.2 0.1-1.0 MG/DL Aspartate Amino Transf (AST/SGOT) 19 5-34 U/L Alanine Aminotransferase (ALT/SGPT) 12 0-55 U/L Alkaline Phosphatase 98 40-136 U/L Troponin I < 0.30 <0.30 NG/ML Total Protein 7.2 6.4-8.2 GM/DL Albumin 4.0 3.2-4.5 GM/DL Glucometer 232 H 70-110 MG/DL Urine Color YELLOW Urine Clarity CLEAR Urine pH 5.5 5-9 Urine Specific [place] 1.015 L 1.016-1.022 Urine Protein NEGATIVE NEGATIVE Urine Glucose (UA) TRACE H NEGATIVE Urine Ketones NEGATIVE NEGATIVE Urine Nitrite NEGATIVE NEGATIVE Urine Bilirubin NEGATIVE NEGATIVE Urine Urobilinogen 0.2 < = 1.0 MG/DL Urine Leukocyte Esterase NEGATIVE NEGATIVE Urine RBC (Auto) NEGATIVE NEGATIVE Urine RBC NONE /HPF Urine WBC 2-5 /HPF Urine Squamous Epithelial Cells 5-10 /HPF Urine Crystals NONE /LPF Urine Bacteria NEGATIVE /HPF Urine Casts NONE /LPF Urine Mucus NEGATIVE /LPF Urine Culture Indicated NO My Orders Orders - ROVENSTCHIO DOAN DO Ct Head Wo-R/O Stroke (11/10/19 14:34) Ed Iv/Invasive Line Start (11/10/19 14:37) Cbc With Automated Diff (11/10/19 14:37) Comprehensive Metabolic Panel (11/10/19 14:37) Troponin I Fs (11/10/19 14:37) Ekg Tracing (11/10/19 14:37) Urinalysis (11/10/19 15:24) Vital Signs/I&O 11/10/19 11/10/19 14:20 14:20 Pulse 80 80 Resp 16 16 B/P (MAP) 144/74 144/74 (97) Pulse Ox 97 97 O2 Delivery Room Air Progress Progress Note : Progress Note Patient has moderate dementia and DNR status. Normal CT without acute findings. Last known well over 18 hours ago. Very minimal findings on Neuro exam and arguably at baseline, but unable to get good NH report. No benefit of sending to Stroke center as she is well outside of a window for treatment. Likely at her physical baseline mentally and physically. Notified NH of plan to return to [facility] Initial ECG Impression Time: 14:30 Initial ECG Rhythm: Normal Sinus Initial ECG Intervals: Normal Initial ECG Impression: Normal Diagnostic Imaging Diagonstic Imaging: CT Plain Films/CT/US/NM/MRI: head Comments FINDINGS: The ventricles and sulci are prominent consistent with cerebral atrophy. No sulcal effacement or midline shift is identified. No acute intra-axial or extra-axial hemorrhage is detected. Cisterns are patent. Visualized paranasal sinuses are clear. IMPRESSION: Cerebral atrophy. No acute intracranial process is detected. Dictated on workstation # [id number] Dict: 11/10/19 1451 Trans: 11/10/[address] [facility] [id number] Interpreted by: FLORIAN WASHINGTON MD Electronically signed by: Departure Impression Primary Impression: Weakness Disposition: 01 HOME, SELF-CARE Condition: Stable Departure-Patient Inst. Decision time for Depature: 15:35 Referrals: SELF,BJ MD (PCP/Family) Primary Care Physician Patient Instructions: Generalized Weakness (DC) CHIO FARMER DO Nov 10, 2019 14:48
[2019-11-10 14:51] LABS: BASOPHILS % (AUTO) 1 % (0-10); EOSINOPHILS % (AUTO) 2 % (0-10); HEMATOCRIT 37 % (35-52); HEMOGLOBIN 11.8 G/DL (11.5-16.0); LYMPHOCYTES % (AUTO) 24 % (12-44); MEAN CORPUSCULAR HEMOGLOBIN 30 PG (25-34); MEAN CORPUSCULAR HGB CONC 32 G/DL (32-36); MEAN CORPUSCULAR VOLUME 94 FL (80-99); MEAN PLATELET VOLUME 10.2 FL (7.4-10.4); MONOCYTES % (AUTO) 10 % (0-12); NEUTROPHILS % (AUTO) 63 % (42-75); PLATELET COUNT 224 10^3/uL (130-400); RED CELL DISTRIBUTION WIDTH 12.4 % (10.0-14.5); WHITE BLOOD COUNT 8.8 10^3/uL (4.3-11.0)
[2019-11-10 14:52] LABS: EOSINOPHILS # (AUTO) 0.2 10^3/uL (0.0-0.3); LYMPHOCYTES # (AUTO) 2.1 X 10^3 (1.0-4.0); MONOCYTES # (AUTO) 0.9 X 10^3 (0.0-1.0); NEUTROPHILS # (AUTO) 5.6 X 10^3 (1.8-7.8)
--- NOTE | 2019-11-10 15:02 | Diagnostic Imaging Report ---
PROCEDURE: CT head w/o, r/o stroke. TECHNIQUE: Multiple contiguous axial images were obtained through the brain without the use of intravenous contrast. Auto Exposure Controls were utilized during the CT exam to meet ALARA standards for radiation dose reduction. INDICATION: Right-sided weakness. COMPARISON: Correlation is made with prior CT 08/31/2019. FINDINGS: The ventricles and sulci are prominent consistent with cerebral atrophy. No sulcal effacement or midline shift is identified. No acute intra-axial or extra-axial hemorrhage is detected. Cisterns are patent. Visualized paranasal sinuses are clear. IMPRESSION: Cerebral atrophy. No acute intracranial process is detected. Dictated by: Dictated on workstation # [id number]
[2019-11-10 15:03] LABS: CHLORIDE 102 MMOL/L (98-107); POTASSIUM 4.8 MMOL/L (3.6-5.0); SODIUM 140 MMOL/L (135-145)
[2019-11-10 15:04] LABS: ALANINE AMINOTRANSFERASE 12 U/L (0-55); ALKALINE PHOSPHATASE 98 U/L (40-136); BILIRUBIN,TOTAL 0.2 MG/DL (0.1-1.0); BUN/CREATININE RATIO 33; CALCIUM 9.3 MG/DL (8.5-10.1); CARBON DIOXIDE 25 MMOL/L (21-32); CREATININE SERUM 1.59 MG/DL (0.60-1.30); GFR ESTIMATED 31; GLUCOSE 266 MG/DL (70-105); TOTAL PROTEIN 7.2 GM/DL (6.4-8.2)
[2019-11-10 15:42] LABS: BACTERIA,URINE NEGATIVE /HPF; BILIRUBIN,URINE NEGATIVE (NEGATIVE); CLARITY,URINE CLEAR; COLOR,URINE YELLOW; KETONES,URINE NEGATIVE (NEGATIVE); LEUKOCYTE ESTERASE ,URINE NEGATIVE (NEGATIVE); NITRITE,URINE NEGATIVE (NEGATIVE); PH,URINE 5.5 (5-9)
[2019-11-10 15:43] LABS: GLUCOSE, URINE (UA) TRACE (NEGATIVE); PROTEIN,URINE NEGATIVE (NEGATIVE)
--- NOTE | 2019-11-10 15:45 | NUR ---
[facility] contacted and the patient will be returning.
--- NOTE | 2019-11-10 15:54 | NUR ---
Patient care report given to Tres Bates RN.
--- NOTE | 2019-11-10 16:00 | NUR ---
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 Reviewed all of the tests results and stating she wants to go home and is following some commands with her limited memory and is fine to return to [facility]. Pt had no records sent from [facility] and had to have RN call for a summary of pt intermittantly functioning then declining throughout the day off and on. Stadium Manager wants staff to give a call to spouse to give full update and the ED is busy and she was asked to fullfill calling the spouse. Pt's status at [facility] is DNR with dementia. It was clarified there was not a UTI. The Stadium Manager states, "Well I suppose she is worsening decline in her physical status and now this ED visit because of some of my scared staff members creates the patient now gets moved r/t her COVID potential exposure."
[2019-11-10 16:10] VITALS: BP 145/58
--- NOTE | 2019-11-10 16:10 | NUR ---
Pt discharged at this time to [facility] with discharge summary given. Pt has been very alert trying to get out of bed thru ED stay and calling out, "I want to go home." Pt had been pulling on rails and scooting with attempts to get up in the last 1 hr of ED stay. VSS.
--- OUTSIDE RECORDS SUMMARY | 2019-11-10 18:46 | XMS REPORT | Continuity of Care Document ---
Author Organization Unknown Address Unknown Phone Unavailable Allergies Active Description Code Type Severity Reaction Onset Reported/Identified Relationship to Patient Clinical Status Yes azithromycin [id number] Drug Allergy Unknown N/A 02/18/2019 Yes metformin [id number] Drug Allergy Unknown N/A 02/18/2019 Yes NSAIDS (Non-Steroidal Anti-Inflamma [id number] Drug Allergy Unknown N/A 02/18/2019 Medications There [...] STATUS TO OTHER ANTIBIOTIC AGENT 08/21/2019 ROVENSTINE DO, CHIO L Ot Z88.6 ALLERGY STATUS TO ANALGESIC AGENT STATUS 08/21/2019 ROVENSTINE DO, CHIO L Ot Z88.8 ALLERGY STATUS TO OTH DRUG/MEDS/BIOL SUB 08/31/2019 ALVARADO DO, FIDEL L Ot 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 08/31/2019 ALVARADO DO, FIDEL L Ot E86.0 DEHYDRATION 08/31/2019 ALVARADO DO, FIDEL L Ot R55 SYNCOPE AND COLLAPSE 08/31/2019 ALVARADO DO, FIDEL L Ot Z88.1 ALLERGY STATUS TO OTHER ANTIBIOTIC AGENT 08/31/2019 ALVARADO DO, FIDEL L Ot Z88.6 ALLERGY STATUS TO ANALGESIC AGENT STATUS 08/31/2019 ALVARADO DO, FIDEL L Ot Z88.8 ALLERGY STATUS TO OTH DRUG/MEDS/BIOL SUB 09/04/2019 ALVARADO DO, FIDEL L Ot 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 09/04/2019 ALVARADO DO, FIDEL L Ot E86.0 DEHYDRATION 09/04/2019 ALVARADO DO, FIDEL L Ot R55 SYNCOPE AND COLLAPSE 09/04/2019 ALVARADO DO, FIDEL L Ot Z88.1 ALLERGY STATUS TO OTHER ANTIBIOTIC AGENT 09/04/2019 ALVARADO DO, FIDEL L Ot Z88.6 ALLERGY STATUS TO ANALGESIC AGENT STATUS 09/04/2019 ALVARADO DO, FIDEL L Ot Z88.8 ALLERGY STATUS TO OTH DRUG/MEDS/BIOL SUB 09/27/2019 ALVARADO DO, FIDEL L Ot 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 09/27/2019 ALVARADO DO, FIDEL L Ot E86.0 DEHYDRATION 09/27/2019 ALVARADO DO, FIDEL L Ot R55 SYNCOPE AND COLLAPSE 09/27/2019 ALVARADO DO, FIDEL L Ot Z88.1 ALLERGY STATUS TO OTHER ANTIBIOTIC AGENT 09/27/2019 ALVARADO DO, FIDEL L Ot Z88.6 ALLERGY STATUS TO ANALGESIC AGENT STATUS 09/27/2019 ALVARADO DO, FIDEL L Ot Z88.8 ALLERGY STATUS TO OTH DRUG/MEDS/BIOL SUB 10/19/2019 ALVARADO DO, FIDEL L Ot 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 10/19/2019 ALVARADO DO, FIDEL L Ot E86.0 DEHYDRATION 10/19/2019 ALVARADO DO, FIDEL L Ot R55 SYNCOPE AND COLLAPSE 10/19/2019 ALVARADO DO, FIDEL L Ot Z88.1 ALLERGY STATUS TO OTHER ANTIBIOTIC AGENT 10/19/2019 ALVARADO DO, FIDEL L Ot Z88.6 ALLERGY STATUS TO ANALGESIC AGENT STATUS 10/19/2019 ALVARADO DO, FIDEL L Ot Z88.8 ALLERGY STATUS TO OTH DRUG/MEDS/BIOL SUB 11/04/2019 ALVARADO DO, FIDEL L Ot 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 Results Test Result Range CMP - 07/05/18 11:28 GLUCOSE 123 mg/dL 65-99 UREA NITROGEN (BUN) 33 mg/dL 7-25 CREATININE 1.43 mg/dL 0.60-0.93 eGFR NON-AFR. ALBANIAN 35 mL/min/1.73m2 > OR = 60 eGFR [...] 7-25 CREATININE 1.51 mg/dL 0.60-0.93 eGFR NON-AFR. ALBANIAN 33 mL/min/1.73m2 > OR = 60 eGFR [...] 15:40 TROPONIN I FS < 0.30 <0.30 Complete blood count (CBC) with automate d white blood cell (WBC) differential - 11/10/19 14:32 Blood leukocytes automated count (number/volume) 8.8 10*3/uL 4.3-11.0 Blood erythrocytes automated count (number/volume) 3.98 10*6/uL 4.35-5.85 Venous blood hemoglobin measurement (mass/volume) 11.8 g/dL 11.5-16.0 Blood hematocrit (volume fraction) 37 % 35-52 Automated erythrocyte mean corpuscular volume 94 [ foz_us] 80-99 Automated erythrocyte mean corpuscular h emoglobin (mass per erythrocyte) 30 pg 25-34 Automated erythrocyte mean corpuscular h emoglobin concentration measurement (mass/volume) 32 g/dL 32-36 Automated erythrocyte distribution width ratio 12. 4 % 10.0- 14.5 Automated blood platelet count (count/volume) 224 10*3/uL 130-400 Automated blood platelet mean volume measurement 10.2 [foz_us] 7.4-10.4 Automated blood neutrophils/100 leukocytes 63 % 42-75 Automated blood lymphocytes/100 leukocytes 24 % 12-44 Blood monocytes/100 leukocytes 10 % 0-12 Automated blood eosinophils/100 leukocytes 2 % 0-10 Automated blood basophils/100 leukocytes 1 % 0-10 Blood neutrophils automated count (number/volume) 5.6 10*3 1.8-7.8 Blood lymphocytes automated count (number/volume) 2.1 10*3 1.0-4.0 Blood monocytes automated count (number/volume) 0. 9 10*3 0.0-1.0 Automated eosinophil count 0.2 10*3/uL 0 .0-0.3 Automated blood basophil count (count/volume) 0.0 10*3/uL 0.0-0.1 Comprehensive metabolic panel - 11/10/19 14:32 Serum or plasma sodium measurement (moles/volume) 140 mmol/L 135-145 Serum or plasma potassium measurement (moles/volume) 4.8 mmol/L 3.6-5.0 Serum or plasma chloride measurement (moles/volume) 102 mmol/L 98-107 Carbon dioxide 25 mmol/L 21-32 Serum or plasma anion gap determination (moles/volume) 13 mmol/L 5-14 Serum or plasma urea nitrogen measurement (mass/volume ) 53 mg/dL 7-18 Serum or plasma creatinine measurement (mass/volume) 1.59 mg/dL 0.60-1.30 Serum or plasma urea nitrogen/creatinine mass ratio 33 NRG Serum or plasma creatinine measurement w ith calculation of estimated glomerular filtration rate 31 NRG Serum or plasma glucose measurement (mass/volume) 266 mg/dL 70-105 Serum or plasma calcium measurement (mass/volume) 9.3 mg/dL 8.5-10.1 Serum or plasma total bilirubin measurement (mass/volu me) 0.2 mg/dL 0.1-1.0 Serum or plasma alkaline phosphatase mildred surement (enzymatic activity/volume) 98 U/L 40-136 Serum or plasma aspartate aminotransfera se measurement (enzymatic activity/volume) 19 U/L 5-34 Serum or plasma alanine aminotransferase measurement (enzymatic activity/volume) 12 U/L 0-55 Serum or plasma protein measurement (mass/volume) 7.2 g/dL 6.4-8.2 Serum or plasma albumin measurement (mass/volume) 4.0 g/dL 3.2-4.5 CALCIUM CORRECTED 9.3 mg/dL 8.5-10.1 TROPONIN I FS - 11/10/19 14:32 TROPONIN I FS < 0.30 <0.30 Capillary blood glucose measurement by g lucometer (mass/volume) - 11/10/19 14:47 Capillary blood glucose measurement by glucometer (mas s/volume) 232 mg/dL 70-110 Complete urinalysis with reflex to cultu re - 11/10/19 15:26 Urine color determination YELLOW NRG Urine clarity determination CLEAR NR G Urine pH measurement by test strip 5.5 5-9 Specific gravity of urine by test strip 1.015 1.016-1.022 Urine protein assay by test strip, semi-quantitative NEGATIVE NEGATIVE Urine glucose detection by automated test strip TR IOANA NEGATIVE Erythrocytes detection in urine sediment by light micr oscopy NEGATIVE NEGATIVE Urine ketones detection by automated test strip NE GATIVE NEGATIVE Urine nitrite detection by test strip NEGATIVE NEGATIVE Urine total bilirubin detection by test strip NEGA TIVE NEGATIVE Urine urobilinogen measurement by automated test strip (mass/volume) 0.2 mg/dL < = 1.0 Urine leukocyte esterase detection by dipstick NEG ATIVE NEGATIVE Automated urine sediment erythrocyte cou nt by microscopy (number/high power field) NONE NRG Automated urine sediment leukocyte count by microscopy (number/high power field) [HPF] NRG Bacteria detection in urine sediment by light microsco py NEGATIVE NRG Squamous epithelial cells detection in u rine sediment by light microscopy 5-10 NRG Crystals detection in urine sediment by light microsco py NONE NRG Casts detection in urine sediment by light microscopy NONE NRG Mucus detection in urine sediment by light microscopy NEGATIVE NRG Complete urinalysis with reflex to culture NO NRG Encounters ACCT No. Visit Date/Time Discharge Status Pt. Type Provider Facility Loc./Unit Complaint [id number] 06/09/2019 14:00:00 06/09/2019 23:59: 59 [facility] Outpatient SELF, BJ Salamancakyara Johnson [id number] 12/01/2018 13:30:00 Document Registration [id number] 11/15/2018 17:45:00 Document Registration [id number] 07/05/2018 17:45:00 Document Registration [id number] 11/10/2019 14:23:00 16:10:00 DIS Emergency ROVENSTINE CHIO KAPLAN [facility] ER FS STROKE SYMPTOMS [id number] 08/31/2019 15:27:00 18:20:00 DIS Outpatient FIDEL ALVARADO DO [facility] ER FS SYNCOPAL EPISODE [id number] 08/18/2019 18:13:00 19:47:00 DIS Emergency ROVENSTINE CHIO KAPLAN [facility] ER FS ALTERED MENTAL STATUS [id number] 02/18/2019 12:08:00 12:35:00 DIS Emergency ROVENSTINE DO, CHIO L [facility] ER FS FALL
[2019-11-11] MEDS ORDERED: GABA-486 PO (12:16)
[2019-11-11] MEDS ORDERED: DONE10TA41 PO (12:16)
[2019-11-11] MEDS ORDERED: INSU100I29 (12:16)
[2019-11-11] MEDS ORDERED: INSU100I14 (12:16)
[2019-11-11] MEDS ORDERED: ZIPR20CA24 (12:16)
[2019-11-11] MEDS ORDERED: ACET-78 PO (12:16)
== END 2019-11-10 16:10 | disposition home or self-care (01) ==
LOC: EDUNIT# 14:19 → ER FS 14:23
DX: R53.1 Weakness (principal); E11.40 Type 2 diabetes mellitus with diabetic neuropathy, unspecified; Z88.6 Allergy status to analgesic agent; Z88.1 Allergy status to other antibiotic agents; Z88.8 Allergy status to other drugs, medicaments and biological substances
CPT/HCPCS: 36415; 70450; 80053; 81000; 82962; 84484; 85025

== ENCOUNTER 2019-11-11 11:22 | Emergency (ER) | payer MEDICARE, MEDICAID ==
[~2019-11-11] VITALS: Ht 160 cm; Wt 62.5 kg
--- NOTE | 2019-11-11 11:26 | NUR ---
Patient arrival to ER via [facility] for report of unwitnessed fall at [facility] without LOC. See nursing triage/assessments. No shortening of R leg but appears to rotate outward, has pain in R thigh noted with movements.
--- NOTE | 2019-11-11 11:30 | NUR ---
Physical exam: note a healing yellowish colored bruise to right side of head at hairline near right ear/lower temporal region. Abrasion to right elbow, scant dried blood.
[2019-11-11] MEDS ORDERED: fentaNYL INJECTION 100 MCG/2 ML AMP IVP ONE (11:45)
[2019-11-11] MEDS ORDERED: ONDANSETRON 4 MG/2 ML (SDV) Z0FRAN IVP ONE (11:45)
--- OUTSIDE RECORDS SUMMARY | 2019-11-11 11:54 | XMS REPORT | Continuity of Care Document ---
Author Organization Unknown Address Unknown Phone Unavailable Allergies Active Description Code Type Severity Reaction Onset Reported/Identified Relationship to Patient Clinical Status Yes azithromycin [id number] Drug Allergy Unknown N/A 02/18/2019 Yes metformin [id number] Drug Allergy Unknown N/A 02/18/2019 Yes NSAIDS (Non-Steroidal Anti-Inflamma [id number] Drug Allergy Unknown N/A 02/18/2019 Medications There [...] 2 DIABETES MELLITUS WITH HYPOGLYCEM 08/18/2019 ROVENSTINE DOCHIO Ot R40.20 UNSPECIFIED COMA 08/18/2019 ROVENSTINE DOCHIO [...] 7-25 CREATININE 1.43 mg/dL 0.60-0.93 eGFR NON-AFR. URUGUAYAN 35 mL/min/1.73m2 > OR = 60 eGFR [...] 7-25 CREATININE 1.51 mg/dL 0.60-0.93 eGFR NON-AFR. URUGUAYAN 33 mL/min/1.73m2 > OR = 60 eGFR [...] Status Pt. Type Provider Facility Loc./Unit Complaint [id number] 06/09/2019 14:00:00 06/09/2019 23:59: 59 [facility] Outpatient SELF, BJ Salamancakyara Johnson [id number] 12/01/2018 13:30:00 Document Registration [id number] 11/15/2018 17:45:00 Document Registration [id number] 07/05/2018 17:45:00 Document Registration [id number] 11/10/2019 14:23:00 16:10:00 DIS Emergency ROVENSTINE CHIO KAPLAN [facility] ER FS STROKE SYMPTOMS [id number] 08/31/2019 15:27:00 18:20:00 DIS Outpatient FIDEL ALVARADO DO [facility] ER FS SYNCOPAL EPISODE [id number] 08/18/2019 18:13:00 19:47:00 DIS Emergency ROVENSTINE CHIO KAPLAN [facility] ER FS ALTERED MENTAL STATUS [id number] 02/18/2019 12:08:00 12:35:00 DIS Emergency ROVENSTINE DO, CHIO L [facility] ER FS FALL
[2019-11-11] MEDS ORDERED: DONE10TA41 PO (12:16)
[2019-11-11] MEDS ORDERED: INSU100I29 (12:16)
[2019-11-11] MEDS ORDERED: INSU100I14 (12:16)
[2019-11-11] MEDS ORDERED: GABA-486 PO (12:16)
[2019-11-11] MEDS ORDERED: ZIPR20CA24 (12:16)
[2019-11-11] MEDS ORDERED: ACET-78 PO (12:16)
--- NOTE | 2019-11-11 12:29 | Diagnostic Imaging Report ---
EXAM: HIP 2-3 VIEW RIGHT INDICATION: Right hip pain. Fall. COMPARISON: None. FINDINGS: Intertrochanteric comminuted impacted right hip fracture. The right femoral head is normally aligned within the acetabulum. No other fractures identified. Vascular calcifications. IMPRESSION: Comminuted impacted right intertrochanteric hip fracture. Dictated by: Dictated on workstation # [id number]
--- NOTE | 2019-11-11 12:30 | Diagnostic Imaging Report ---
EXAM: FEMUR 2 VIEW RIGHT INDICATION: Fall. Right hip pain. COMPARISON: Right hip radiographs also performed today. FINDINGS: Comminuted impacted right intertrochanteric hip fracture. Right femur is otherwise intact. Vascular calcifications. IMPRESSION: Comminuted impacted right intertrochanteric hip fracture. Dictated by: Dictated on workstation # [id number]
--- NOTE | 2019-11-11 12:30 | NUR ---
Pt placed in gown and attempts x 2 RN's and 16 Fr and 16 Fr Coude and unable to catheterize patient. Appears to be strictured at unable to pass thru meatus.
--- NOTE | 2019-11-11 13:11 | ED General ---
General Chief Complaint: Trauma-Non Activation Stated Complaint: FALL Nursing Triage Note: Arrival to ED per [facility] from [facility], patient is reported as found on floor unwitnessed fall and appears to grimace or hold right upper leg with transfer of patient to cot. Pt was in ER also yesterday as r/o stroke. Nursing Sepsis Screen: No Definite Risk Source of Information: Patient History of Present Illness Date Seen by Provider: Nov 11, 2019 Time Seen by Provider: 12:00 Initial Comments Patient is a 79-year-old [facility] with history of advanced dementia with behavioral disturbance with gait instability who presents with right hip pain injury after suffering an unwitnessed fall. Patient was found alert and oriented to person lying supine on [facility]entiary floor. Patient's walker was not next to her at time of fall. Patient has isolated right thigh/hip pain and tenderness. No attempts were made for the patient to weight-bear. She does not recall loss of consciousness and denies hitting her head, headache and neck pain. She is not on anticoagulation therapy. Patient was evaluated in the emergency department yesterday for generalized weakness had extensive workup including CT of head, EKG lab and urine which was unremarkable. History is limited due the presence of dementia. Patient's spouse is Dylan Graff. Location Injury Occurred: at residence of [facility] Timing/Duration: 1/2 Hour, 1 Hour Severity: Moderate Modifying Factors: improves with Movement Associated Systoms: Other Allergies and Home Medications Allergies Coded Allergies: NSAIDS (Non-Steroidal Anti-Inflamma (Unverified Allergy, Unknown, 02/18/19) azithromycin (Unverified Allergy, Unknown, 02/18/19) metformin (Unverified Allergy, Unknown, 02/18/19) Home Medications Acetaminophen 500 Mg Tablet, 500 MG PO QID, (Reported) Donepezil HCl 10 Mg Tablet, 10 MG PO HS, (Reported) Gabapentin 100 Mg Capsule, 100 MG PO Q8H, (Reported) Patient Home Medication List Home Medication List Reviewed: Yes Review of Systems Review of Systems Constitutional: no symptoms reported EENTM: no symptoms reported Respiratory: no symptoms reported Cardiovascular: no symptoms reported Gastrointestinal: no symptoms reported Genitourinary: no symptoms reported : No Musculoskeletal: see HPI Skin: no symptoms reported Psychiatric/Neurological: No Symptoms Reported Hematologic/Lymphatic: No Symptoms Reported Immunological/Allergic: no symptoms reported All Other Systems Reviewed Negative Unless Noted: Yes Past Pnneuzs-Husuqx-Inpvvk Hx Past Med/Social Hx: Reviewed Nursing Past Med/Soc Hx Patient Social History Alcohol Use: Denies Use Recreational Drug Use: No Smoking Status: Never a Smoker 2nd Hand Smoke Exposure: No Recent Foreign Travel: No Contact w/Someone Who Travel: No Recent Infectious Disease Expo: No Recent Hopitalizations: No Physical Abuse: No Sexual Abuse: No Mistreated: No Fear: No Immunizations Up To Date Tetanus Booster (TDap): Unknown Seasonal Allergies Seasonal Allergies: No Past Medical History Surgeries: No (Poor historian r/t dementia) Respiratory: No Cardiac: Yes High Cholesterol Neurological: Yes (Advanced Alzheimer's, Diabetic neuropathy) Dementia, Neuropathy Genitourinary: No Gastrointestinal: Yes Chronic Constipation Musculoskeletal: No (difficulty in walking/muscle weakness dx codes @ [place]) Endocrine: Yes Diabetes, Insulin dep HEENT: No Cancer: No Psychosocial: Yes (Delusional disorder) Anxiety, Depression Integumentary: No Blood Disorders: No Physical Exam Vital Signs Vital Signs - First Documented Capillary Refill : Less Than 3 Seconds Height, Weight, BMI Height: '" Weight: lbs. oz. kg; 24.00 BMI Method: General Appearance: Mild Distress Eyes: Bilateral Eye Normal Inspection, Bilateral Eye PERRL HEENT: PERRL/EOMI, Normal ENT Inspection, Pharynx Normal Neck: Non Tender, Supple Respiratory: Chest Non Tender, Lungs Clear Cardiovascular: Regular Rate, Rhythm Gastrointestinal: Normal Bowel Sounds Back: Normal Inspection, Other (right leg neurovascularly intact) Extremity: Other (right hip/thigh pain, tenderness with shortening of right leg.) Neurologic/Psychiatric: Alert, No Motor/Sensory Deficits, Other (oriented to person) Skin: Normal Color Focused Exam Sepsis Stage: Ruled Out Progress/Results/Core Measures Suspected Sepsis Recent Fever Within 48 Hours: No Infection Criteria Present: None New/Unexplained Altered Menta: No Sepsis Screen: No Definite Risk SIRS Temperature: Pulse: 78 Respiratory Rate: 16 Laboratory Tests 11/11/19 13:07: White Blood Count 11.1H Blood Pressure 153 /49 Mean: 83 Laboratory Tests 11/11/19 13:05: Creatinine 1.68H, INR Comment 1.0, Total Bilirubin 0.3 11/11/19 13:07: Platelet Count 222 Results/Orders Lab Results Laboratory Tests Test 11/11/19 13:05 11/11/19 13:07 Range/Units Prothrombin Time 13.4 12.2-14.7 SEC INR Comment 1.0 0.8-1.4 Sodium Level 141 135-145 MMOL/L Potassium Level 5.5 H 3.6-5.0 MMOL/L Chloride Level 105 98-107 MMOL/L Carbon Dioxide Level 23 21-32 MMOL/L Anion Gap 13 5-14 MMOL/L Blood Urea Nitrogen 49 H 7-18 MG/DL Creatinine 1.68 H 0.60-1.30 MG/DL Estimat Glomerular Filtration Rate 30 BUN/Creatinine Ratio 29 Glucose Level 262 H 70-105 MG/DL Calcium Level 9.2 8.5-10.1 MG/DL Corrected Calcium 9.1 8.5-10.1 MG/DL Total Bilirubin 0.3 0.1-1.0 MG/DL Aspartate Amino Transf (AST/SGOT) 26 5-34 U/L Alanine Aminotransferase (ALT/SGPT) 14 0-55 U/L Alkaline Phosphatase 95 40-136 U/L Total Protein 7.1 6.4-8.2 GM/DL Albumin 4.1 3.2-4.5 GM/DL White Blood Count 11.1 H 4.3-11.0 10^3/uL Red Blood Count 3.74 L 4.35-5.85 10^6/uL Hemoglobin 11.4 L 11.5-16.0 G/DL Hematocrit 36 35-52 % Mean Corpuscular Volume 95 80-99 FL Mean Corpuscular Hemoglobin 31 25-34 PG Mean Corpuscular Hemoglobin Concent 32 32-36 G/DL Red Cell Distribution Width 12.6 10.0-14.5 % Platelet Count 222 130-400 10^3/uL Mean Platelet Volume 10.8 H 7.4-10.4 FL Neutrophils (%) (Auto) 77 H 42-75 % Lymphocytes (%) (Auto) 13 12-44 % Monocytes (%) (Auto) 7 0-12 % Eosinophils (%) (Auto) 1 0-10 % Basophils (%) (Auto) 1 0-10 % Neutrophils # (Auto) 8.6 H 1.8-7.8 X 10^3 Lymphocytes # (Auto) 1.5 1.0-4.0 X 10^3 Monocytes # (Auto) 0.8 0.0-1.0 X 10^3 Eosinophils # (Auto) 0.2 0.0-0.3 10^3/uL Basophils # (Auto) 0.1 0.0-0.1 10^3/uL My Orders Orders - EMANI MELGAR DO Hip 2-3 View Right (11/11/19 11:37) Femur 2 View Right (11/11/19 11:37) Fentanyl Injection (Sublimaze Injection (11/11/19 11:45) Ondansetron Injection (Zofran Injectio (11/11/19 11:45) Chest 1 View Ap/Pa Only (11/11/19 11:37) Cbc With Automated Diff (11/11/19 11:37) Comprehensive Metabolic Panel (11/11/19 11:37) Protime With Inr (11/11/19 11:37) Ua Culture If Indicated (11/11/19 11:37) Catheter(Urinary) Insert & Ass 03,15 (11/11/19 11:37) Ekg Tracing (11/11/19 11:37) Medications Given in ED Current Medications Medications Dose Ordered Sig/Yadira Route Start Time Stop Time Status Last Admin Dose Admin Fentanyl Citrate 50 mcg ONCE ONCE IVP 11/11/19 11:45 11/11/19 11:46 DC 11/11/19 12:21 50 MCG Ondansetron HCl 4 mg ONCE ONCE IVP 11/11/19 11:45 11/11/19 11:46 DC 11/11/19 12:21 4 MG Vital Signs/I&O 11/11/19 11/11/19 11:26 11:26 Temp 36.8 36.8 Pulse 78 78 Resp 16 16 B/P (MAP) 153/49 (83) 153/49 (83) Pulse Ox 97 97 O2 Delivery Room Air Room Air Capillary Refill : Less Than 3 Seconds Blood Pressure Mean: 83 Departure Communication (Admissions) Chest x-ray/pelvis/right hip/right femur: Right intratrochanteric hip fracture. Isolated closed right hip fracture in patient with advanced dementia. Patient's neurovascularly intact. Vital signs stable medically stable. Patient's spouse, Dylan Graff, requested patient be transferred to [facility]. Patient accepted to [facility] by Dr. Otilia Flores. Impression Primary Impression: Hip fracture, right Additional Impression: Dementia Disposition: 02 XFER SHT-TRM HOSP Condition: Stable Transfer Method of Transfer: EMS Departure-Patient Inst. Referrals: SELF,BJ VALERIO (PCP/Family) Primary Care Physician EMANI MELGAR DO Nov 11, 2019 13:11
[2019-11-11 13:20] LABS: BASOPHILS % (AUTO) 1 % (0-10); EOSINOPHILS % (AUTO) 1 % (0-10); HEMATOCRIT 36 % (35-52); HEMOGLOBIN 11.4 G/DL (11.5-16.0); LYMPHOCYTES % (AUTO) 13 % (12-44); MEAN CORPUSCULAR HEMOGLOBIN 31 PG (25-34); MEAN CORPUSCULAR HGB CONC 32 G/DL (32-36); MEAN CORPUSCULAR VOLUME 95 FL (80-99); MEAN PLATELET VOLUME 10.8 FL (7.4-10.4); MONOCYTES % (AUTO) 7 % (0-12); NEUTROPHILS % (AUTO) 77 % (42-75); PLATELET COUNT 222 10^3/uL (130-400); RED CELL DISTRIBUTION WIDTH 12.6 % (10.0-14.5); WHITE BLOOD COUNT 11.1 10^3/uL (4.3-11.0)
[2019-11-11 13:21] LABS: BASOPHILS # (AUTO) 0.1 10^3/uL (0.0-0.1); EOSINOPHILS # (AUTO) 0.2 10^3/uL (0.0-0.3); LYMPHOCYTES # (AUTO) 1.5 X 10^3 (1.0-4.0); MONOCYTES # (AUTO) 0.8 X 10^3 (0.0-1.0); NEUTROPHILS # (AUTO) 8.6 X 10^3 (1.8-7.8)
[2019-11-11 13:30] LABS: PROTHROMBIN TIME PATIENT 13.4 SEC (12.2-14.7)
--- NOTE | 2019-11-11 13:41 | Diagnostic Imaging Report ---
CHEST 1 VIEW AP/PA ONLY Indication: Trauma, fall Comparison: None available. Findings: No focal airspace disease in the visualized lungs. Please note that the posterior lower lobes are poorly evaluated by portable radiography. No pleural effusion or pneumothorax. Normal cardiomediastinal silhouette. Impression: 1. No acute cardiopulmonary process by portable radiography. Dictated by: Dictated on workstation # [id number]
[2019-11-11 13:42] LABS: CREATININE SERUM 1.68 MG/DL (0.60-1.30); POTASSIUM 5.5 MMOL/L (3.6-5.0)
[2019-11-11 13:43] LABS: ALBUMIN 4.1 GM/DL (3.2-4.5); BILIRUBIN,TOTAL 0.3 MG/DL (0.1-1.0); CALCIUM 9.2 MG/DL (8.5-10.1); TOTAL PROTEIN 7.1 GM/DL (6.4-8.2)
--- NOTE | 2019-11-11 14:10 | NUR ---
[facility] called acceptance for patient and bed assignment [facility].
--- NOTE | 2019-11-11 14:15 | NUR ---
Call to [facility] to give a report.
--- NOTE | 2019-11-11 14:25 | NUR ---
Call to [facility] to give report and no nurse is available, await return call for report.
--- NOTE | 2019-11-11 15:00 | NUR ---
Patient report to Ruchi PADRON at [facility]. Copies of labs: blood and urine and head CT sending from yesterday ER visit also.
--- NOTE | 2019-11-11 15:10 | NUR ---
[facility] here.
[2019-11-11 15:20] VITALS: BP 129/47
--- NOTE | 2019-11-11 15:20 | NUR ---
Pt departing at this time on [facility] to [facility]. Pt is alert.
--- NOTE | 2019-11-11 15:25 | NUR ---
Call to [facility] transfer line and gave ETA for 1700 (1 1/2 hr).
--- NOTE | 2019-11-11 15:28 | NUR ---
Call to patient's 's phone and tried to reach him. Received his personalized voicemail and left message of his 's depart just now, on [facility], RM # [id number]. The [facility] visitation policy is 1 person in a 24 hr period of [id number] august visit.
== END 2019-11-11 15:20 | disposition short-term general hospital (02) ==
LOC: EDUNIT# 11:22 → ER FS 11:22
DX: S72.141A Displaced intertrochanteric fracture of right femur, initial encounter for closed fracture (principal); G30.9 Alzheimer's disease, unspecified; F02.81 Dementia in other diseases classified elsewhere, unspecified severity, with behavioral disturbance; E11.40 Type 2 diabetes mellitus with diabetic neuropathy, unspecified; Z88.6 Allergy status to analgesic agent; Z88.1 Allergy status to other antibiotic agents; Z88.8 Allergy status to other drugs, medicaments and biological substances; W19.XXXA Unspecified fall, initial encounter; Y92.129 Unspecified place in nursing home as the place of occurrence of the external cause
CPT/HCPCS: 36415; 71045; 73502; 73552; 80053; 85025; 85610; 93005